=== PATIENT | female | born 1955 | race Caucasian/White ===

== ENCOUNTER 2019-08-09 00:51 | Day surgery (SDC) | payer MEDICARE, SELFPAY ==
[2019-08-08 13:59] VITALS: BMI 29.7
[2019-08-09 08:56] VITALS: BP 130/87; PULSE 89; RESP 16; TEMP 36.6; O2SAT 97
[2019-08-09] MEDS: LACTATED RINGERS 1,000 ML 150 ML IV CONT (09:06)
--- NOTE | 2019-08-09 09:15 | WPDANESEPPF ---
Anes - Initial Pre Proc Eval Procedure: Operation Date: 08/09/19 09:30 Proposed Procedures p Screening Colonoscopy - Marty Morris DO Date/Time: 08/09/19 09:15 Surgeon: Marty Morris DO Pre Op Diagnosis: Neoplasm Screening Patient Data Age: 63 Gender: F Height: 1.63 m Weight: 77.7 kg Last Vital Signs Temp 36.6 C 08/09/19 08:56 Pulse 89 08/09/19 08:56 Resp 16 08/09/19 08:56 BP 130/87 08/09/19 08:56 Pulse Ox 97 08/09/19 08:56 Allergies Allergy/AdvReac Type Severity Reaction Status Date / Time Penicillins Allergy Unknown Other Verified 08/09/19 08:49 Home Medications Medication Instructions Recorded Confirmed Type amlodipine 5 mg PO DAILY 08/08/19 08/09/19 History celecoxib 400 mg PO DAILY 08/08/19 08/09/19 History duloxetine 60 mg PO DAILY 08/08/19 08/09/19 History gabapentin 300 mg PO DAILY 08/08/19 08/09/19 History gabapentin 300 mg PO HS 08/08/19 08/09/19 History levothyroxine 150 mcg PO DAILY 08/08/19 08/09/19 History omeprazole 40 mg PO DAILY 08/08/19 08/09/19 History oxybutynin chloride 5 mg PO DAILY 08/08/19 08/09/19 History oxybutynin chloride 10 mg PO HS 08/08/19 08/09/19 History trazodone 200 mg PO HS 08/08/19 08/09/19 History valsartan-hydrochlorothiazide 1 tablet PO DAILY 08/08/19 08/09/19 History venlafaxine 75 mg PO TID 08/08/19 08/09/19 History vitamin B complex-folic acid [B 1 tablet PO DAILY 08/08/19 08/09/19 History Complex 100] Patient hx anesthesia problems: none Family hx anesthesia problems: none PMFSH Past Medical History Medical History (Updated 08/09/19 @ 09:15 by Matthew Berrios DO) COPD (chronic obstructive pulmonary disease) Fibromyalgia Hypertension DEBBIE (obstructive sleep apnea) Social History Social History Smoking status: Never smoker Alcohol intake: never Anes - Eval Final PreProcedure Day of Procedure 08/09/19 09:15 Patient weight: overweight Heart: regular rate and rhythm Lungs: clear to auscultation and normal air movement Airway: Mallampati scale class II Neurological: alert and oriented Last oral intake: >/= 8 hours ASA classification: III Emergent: no Anesthetic plan: proceed Anesthesia type and monitoring: general GIVS and standard monitoring Informed Consent: The patient's anesthetic plan and its attendant risks and benefits were discussed with the patient/family/POA. Questions were solicited and answers provided to the satisfaction of the patient/family/POA.
--- NOTE | 2019-08-09 09:36 | PM.IMHP ---
H&P: HPI History of Present Illness Chief complaint: Neoplasm Screening Narrative: Reason for visit is colonoscopy. This very pleasant lady seen at the request of her primary physician. The patient was examined. Impression: Screening colonoscopy and family history of colon cancer. Patient has a history adenomatous colon polyps. Hypertension. Hypothyroidism. COPD. Fibromyalgia. Anxiety/depression. GERD. Neuropathy. Recommendation: Colonoscopy. History: This very pleasant lady's here for screening and surveillance colonoscopy. She has history adenomatous colon polyps and a family history colorectal cancer. She also has a history of GERD is well controlled on medication. Her GI review systems is unremarkable. Physical examination: General: very pleasant patient in no acute distress. HEENT: Head was normocephalic sclerae is clear mouth without masses neck was supple. Heart: Rate rhythm regular without S3 or S4. Lungs: CTA. Abdomen: Soft with no guarding or rigidity. Bowel sounds were active. Neurologic: Cranial nerves 2 through 12 intact. No focal defects. No clonus. Musculoskeletal system: Revealed no joint tenderness or swelling no muscle atrophy. Extremities: Reveal no significant edema. Skin: Warm and dry with normal turgor. Mental status: intact. Patient is alert and oriented. I want to thank you for allowing me to participate in care of this most interesting patient. Review of Systems Review of Systems: All systems reviewed & are unremarkable except as noted in HPI and below PMFSH Past Medical History Medical History (Updated 08/09/19 @ 09:15 by Matthew Berrios DO) COPD (chronic obstructive pulmonary disease) Fibromyalgia Hypertension DEBBIE (obstructive sleep apnea) Surgical History Surgical History (Updated 08/09/19 @ 09:39 by Marty Morris DO) H/O section H/O colonoscopy H/O repair of rotator cuff Hx of cholecystectomy Social History Social History Smoking status: Never smoker Alcohol intake: never Meds Home Medications and Allergies Home Medications Medication Instructions Recorded Confirmed Type amlodipine 5 mg PO DAILY 08/08/19 08/09/19 History celecoxib 400 mg PO DAILY 08/08/19 08/09/19 History duloxetine 60 mg PO DAILY 08/08/19 08/09/19 History gabapentin 300 mg PO DAILY 08/08/19 08/09/19 History gabapentin 300 mg PO HS 08/08/19 08/09/19 History levothyroxine 150 mcg PO DAILY 08/08/19 08/09/19 History omeprazole 40 mg PO DAILY 08/08/19 08/09/19 History oxybutynin chloride 5 mg PO DAILY 08/08/19 08/09/19 History oxybutynin chloride 10 mg PO HS 08/08/19 08/09/19 History trazodone 200 mg PO HS 08/08/19 08/09/19 History valsartan-hydrochlorothiazide 1 tablet PO DAILY 08/08/19 08/09/19 History venlafaxine 75 mg PO TID 08/08/19 08/09/19 History vitamin B complex-folic acid [B 1 tablet PO DAILY 08/08/19 08/09/19 History Complex 100] Allergies Allergy/AdvReac Type Severity Reaction Status Date / Time Penicillins Allergy Unknown Other Verified 08/09/19 08:49 Vital Signs Vital Signs - 24 hr 08/09/19 08:56 Temperature 36.6 C Pulse Rate 89 Respiratory Rate 16 Blood Pressure 130/87 Pulse Oximetry 97
--- NOTE | 2019-08-09 09:51 | PM.IMHP ---
H&P: HPI History of Present Illness Chief complaint: Neoplasm Screening Narrative: Reason for visit EGD. This very pleasant lady is seen at the request of the primary physician. The patient examined and chart review. Impression: This very pleasant lady's being evaluated for reflux disease and anemia. She is here for endoscopic evaluation to assess for allowing peptic ulcer disease. Increasing reflux disease with breakthrough symptoms. There may be a component underlying biliary disease with epigastric discomfort. Asthma/ COPD. Fibromyalgia. Hypertension. Obstructive sleep apnea. Chronic idiopathic constipation /opioid induced constipation. Recommendation: EGD. May require colonoscopy. History: This very pleasant lady's being evaluated for increasing reflux disease. She has a premature a daily basis. When reflux real bad she complains of hoarseness. She does complain of some abdominal discomfort. She was told that she had gallstones. She does have chronic constipation and takes Trulance which seems to help her constipation. She denies any hematochezia, melena or acholic stools. She does have a history of dysphagia to solid foods. Fever, chills and weight loss or tonight. The patient is here for EGD. Physical examination: General: very pleasant patient in no acute distress. HEENT: Head was normocephalic sclerae is clear mouth without masses neck was supple. Heart: Rate rhythm regular without S3 or S4. Lungs: CTA. Abdomen: Soft with no guarding or rigidity. Bowel sounds were active. Neurologic: Cranial nerves 2 through 12 intact. No focal defects. No clonus. Musculoskeletal system: Revealed no joint tenderness or swelling no muscle atrophy. Extremities: Reveal no significant edema. Skin: Warm and dry with normal turgor. Mental status: intact. Patient is alert and oriented. Want to thank you for allowing me to participate in the care of this most interesting patient. Review of Systems Review of Systems: All systems reviewed & are unremarkable except as noted in HPI and below PMFSH Past Medical History Medical History (Updated 08/09/19 @ 09:54 by Marty Morris DO) Anxiety and depression Chronic idiopathic constipation COPD (chronic obstructive pulmonary disease) Fibromyalgia GERD (gastroesophageal reflux disease) Hypertension Hypothyroid DEBBIE (obstructive sleep apnea) Therapeutic opioid-induced constipation (OIC) Surgical History Surgical History (Updated 08/09/19 @ 09:39 by Marty Morris DO) H/O section H/O colonoscopy H/O repair of rotator cuff Hx of cholecystectomy Social History Social History Smoking status: Never smoker Alcohol intake: never Meds Home Medications and Allergies Home Medications Medication Instructions Recorded Confirmed Type amlodipine 5 mg PO DAILY 08/08/19 08/09/19 History celecoxib 400 mg PO DAILY 08/08/19 08/09/19 History duloxetine 60 mg PO DAILY 08/08/19 08/09/19 History gabapentin 300 mg PO DAILY 08/08/19 08/09/19 History gabapentin 300 mg PO HS 08/08/19 08/09/19 History levothyroxine 150 mcg PO DAILY 08/08/19 08/09/19 History omeprazole 40 mg PO DAILY 08/08/19 08/09/19 History oxybutynin chloride 5 mg PO DAILY 08/08/19 08/09/19 History oxybutynin chloride 10 mg PO HS 08/08/19 08/09/19 History trazodone 200 mg PO HS 08/08/19 08/09/19 History valsartan-hydrochlorothiazide 1 tablet PO DAILY 08/08/19 08/09/19 History venlafaxine 75 mg PO TID 08/08/19 08/09/19 History vitamin B complex-folic acid [B 1 tablet PO DAILY 08/08/19 08/09/19 History Complex 100] Allergies Allergy/AdvReac Type Severity Reaction Status Date / Time Penicillins Allergy Unknown Other Verified 08/09/19 08:49 Vital Signs Vital Signs - 24 hr 08/09/19 08:56 Temperature 36.6 C Pulse Rate 89 Respiratory Rate 16 Blood Pressure 130/87 Pulse Oximetry 97
[2019-08-09 10:18] VITALS: BP 114/70; PULSE 79; RESP 15; O2SAT 98
[2019-08-09 10:28] VITALS: BP 120/70; PULSE 77; RESP 19; O2SAT 98
[2019-08-09 10:38] VITALS: BP 122/73; PULSE 75; RESP 20; O2SAT 95
== END 2019-08-09 10:50 | disposition home or self-care (01) ==
PROVIDERS: PCP Nurse Practitioner Adult Health; Visit Provider Internal Medicine Gastroenterology
PROC: 0DJD8ZZ Inspection of Lower Intestinal Tract, Via Natural or Artificial Opening Endoscopic (ICD-10-PCS; CPT 45378; principal; 2019-08-09 09:30)
DX: Z12.11 Encounter for screening for malignant neoplasm of colon (principal); K63.5 Polyp of colon; K62.1 Rectal polyp; Z80.0 Family history of malignant neoplasm of digestive organs; I10 Essential (primary) hypertension; J44.9 Chronic obstructive pulmonary disease, unspecified; G47.33 Obstructive sleep apnea (adult) (pediatric); M79.7 Fibromyalgia
CPT/HCPCS: 45380; 88305; J2704; J7120

== ENCOUNTER → 2019-08-16 11:20 | Outpatient (CLI) | payer MEDICARE, SELFPAY ==
--- NOTE | ~2019-08-16 | MM_ITS ---
EXAMINATION: MM screening [facility] BI w will HISTORY: Screening mammogram TECHNIQUE: Craniocaudal and mediolateral oblique 3-D tomosynthesis images were obtained and synthetic 2-D images were generated. CAD analysis was submitted and interpreted. COMPARISON: Comparison to multiple prior studies sequentially, with oldest reviewed study dated 03/31. BREAST PARENCHYMAL COMPOSITION: There are scattered areas of fibroglandular density. FINDINGS: There is no evidence of suspicious mass, calcification, or architectural distortion to sugg est malignancy in either breast. There has been no suspicious interval change. IMPRESSION: 1. No mammographic evidence of malignancy. 2. Recommend routine screening mammography in one year. BI-RADS Category 1: Negative Reviewed, dictated and finalized at location A.
== END ==
PROVIDERS: PCP Nurse Practitioner Adult Health; Visit Provider Nurse Practitioner
DX: Z12.31 Encounter for screening mammogram for malignant neoplasm of breast (principal)
CPT/HCPCS: 77063; 77067

== ENCOUNTER → 2020-10-13 15:49 | Outpatient (CLI) | payer MEDICARE, SELFPAY ==
--- NOTE | ~2020-10-13 | MM_ITS ---
EXAMINATION: MM screening [facility] w will HISTORY: Screening TECHNIQUE: Craniocaudal and mediolateral oblique 3-D tomosynthesis images were obtained and synthetic 2-D images were generated. CAD analysis was submitted and interpreted. COMPARISON: No prior mammogram is available for comparison at this institution. BREAST PARENCHYMAL COMPOSITION: Breast composed of scattered areas of fibroglandular density FINDINGS: There are asymmetries in the upper outer quadrant of the right breast which are stable comp ared with prior studies. There is no evidence of suspicious mass, calcification, or architectural dis tortion to suggest malignancy in either breast. There has been no suspicious interval change. IMPRESSION: 1. No mammographic evidence of malignancy. 2. Recommend routine screening mammography in one year. BI-RADS Category 1: Negative Reviewed, dictated and finalized at location A.
== END ==
PROVIDERS: Visit Provider Obstetrics & Gynecology Gynecology
DX: Z12.31 Encounter for screening mammogram for malignant neoplasm of breast (principal)
CPT/HCPCS: 77063; 77067

== ENCOUNTER 2022-05-26 16:36 | Emergency (ER) | payer MEDICARE, SELFPAY ==
[2022-05-26 16:43] VITALS: BP 144/78; PULSE 84; RESP 18; TEMP 36.4; O2SAT 98
--- NOTE | 2022-05-26 16:55 | ED.FEMALEGU ---
HPI - Female Genitourinary General Chief complaint: Urogenital-Female Stated complaint: uti Time Seen by Provider: 05/26/22 16:55 Source: patient Mode of arrival: ambulatory Limitations: no limitations History of Present Illness HPI Narrative: Ms. Amaya is a 66-year-old female patient presenting to the clinic today with complaints possible urinary tract infection Times 3-4 days. She reports no fever or chills however she has some had some lower abdominal pain. Reports dysuria frequency and urgency. Has taken on an old Keflex prescription and been taking some azo for her symptoms Related Data Home Medications Medication Instructions Recorded Confirmed amlodipine 5 mg tablet 5 mg PO DAILY 08/08/19 05/26/22 celecoxib 200 mg capsule 400 mg PO DAILY 08/08/19 05/26/22 duloxetine 60 mg capsule,delayed 60 mg PO DAILY 08/08/19 05/26/22 release gabapentin 300 mg capsule 300 mg PO DAILY 08/08/19 05/26/22 gabapentin 300 mg capsule 300 mg PO HS 08/08/19 05/26/22 levothyroxine 150 mcg capsule 150 mcg PO DAILY 08/08/19 05/26/22 omeprazole 40 mg capsule,delayed 40 mg PO DAILY 08/08/19 05/26/22 release oxybutynin chloride 5 mg tablet 5 mg PO DAILY 08/08/19 05/26/22 oxybutynin chloride 5 mg tablet 10 mg PO HS 08/08/19 05/26/22 trazodone 100 mg tablet 200 mg PO HS 08/08/19 05/26/22 venlafaxine 75 mg tablet 75 mg PO TID 08/08/19 05/26/22 vitamin B complex-folic acid 0.4 1 tablet PO DAILY 08/08/19 05/26/22 mg tablet (B Complex 100) Allergies Allergy/AdvReac Type Severity Reaction Status Date / Time Penicillins Allergy Unknown Other Verified 08/09/19 08:49 Review of Systems Review of Systems: Pertinent positives per HPI. Patient denies any fever, chills, rash, headache, visual changes, dizziness, cough, runny nose, sore throat, shortness of breath, chest pain, palpitations, nausea, vomiting, diarrhea, constipation. PMFSH Past Medical History Medical History (Updated 05/26/22 @ 17:16 by Manoj Falcon, CLUB ATTENDANT) Anxiety and depression Chronic idiopathic constipation COPD (chronic obstructive pulmonary disease) Fibromyalgia GERD (gastroesophageal reflux disease) Hypertension Hypothyroid DEBBIE (obstructive sleep apnea) Therapeutic opioid-induced constipation (OIC) Surgical History Surgical History (Updated 08/09/19 @ 09:39 by Marty Morris DO) H/O section H/O colonoscopy H/O repair of rotator cuff Hx of cholecystectomy Social History Social History Smoking status: Never smoker Alcohol intake: never Comments At the time of my signature, I reviewed and agree with the nursing past medical, surgical, social, and family history. There is no relevant family history pertinent to the patient complaint. Exam Narrative: General: Well-developed, well nourished, in no apparent distress. Head: Normocephalic, atraumatic. Cardio: Regular rate and rhythm, s1 and s2 normal, no murmur appreciated. Resp: Clear to auscultation bilaterally, no rhonchi, rales, wheezing or rubs. Abdomen: Soft, pliable, bowel sounds present in all quadrants, tender to palpation over the bladder, no organomegly, no CVAT tenderness. Course Course Emergency Course: Portions of this record may have been created with voice recognition software. Level of Care: Express Care Visit Vital Signs Vital signs: Vital Signs Temperature 36.4 C L 05/26/22 16:43 Pulse Rate 84 05/26/22 16:43 Respiratory Rate 18 05/26/22 16:43 Blood Pressure 144/78 H 05/26/22 16:43 Pulse Oximetry 98 05/26/22 16:43 Oxygen Delivery Room Air 05/26/22 16:43 Temperature 36.4 C L 05/26/22 16:43 Pulse Rate 84 05/26/22 16:43 Respiratory Rate 18 05/26/22 16:43 Blood Pressure 144/78 H 05/26/22 16:43 Pulse Oximetry 98 05/26/22 16:43 Oxygen Delivery Room Air 05/26/22 16:43 Vital signs reviewed MDM - Female Genitourinary MDM Narrative Medical decision making narrative: At the time of visit patient is resting comfortabl
== END 2022-05-26 17:22 | disposition home or self-care (01) ==
PROVIDERS: Emergency Provider Nurse Practitioner Family
DX: N39.0 Urinary tract infection, site not specified (principal); K21.9 Gastro-esophageal reflux disease without esophagitis; G47.33 Obstructive sleep apnea (adult) (pediatric); E03.9 Hypothyroidism, unspecified; J44.9 Chronic obstructive pulmonary disease, unspecified; F41.8 Other specified anxiety disorders; I10 Essential (primary) hypertension
CPT/HCPCS: 81003; 87086; 87088; 99213; G0463

== ENCOUNTER 2022-06-08 16:30 | Emergency (ER) | payer MEDICARE, SELFPAY ==
[2022-06-08 16:39] VITALS: BP 138/79; PULSE 75; RESP 20; TEMP 36.6; O2SAT 98
--- NOTE | 2022-06-08 16:45 | ED.FEMALEGU ---
HPI - Female Genitourinary General Chief complaint: Urogenital-Female Stated complaint: uti Time Seen by Provider: 06/08/22 16:49 Source: patient, RN notes reviewed and old records reviewed Mode of arrival: ambulatory Limitations: no limitations History of Present Illness HPI Narrative: 60-year-old female presents to the [facility] with continued urgency, burning, frequency of urine. Was seen on the and prescribed Bactrim, states that she is not any better. Reviewed the microbiology from that day, nothing grew out. Patient also reports that she was seen by her cardiopulmonary technician and eeg tech provider on the and prescribed Macrobid. States prior to that she had taken several left over cephalexin patient denies any rashes. States that she was supposed to be referred to a urologist by her cardiopulmonary technician and eeg tech but has not made the appointment because they are too far out. Related Data Home Medications Medication Instructions Recorded Confirmed amlodipine 5 mg tablet 5 mg PO DAILY 08/08/19 06/08/22 celecoxib 200 mg capsule 400 mg PO DAILY 08/08/19 06/08/22 duloxetine 60 mg capsule,delayed 60 mg PO DAILY 08/08/19 06/08/22 release gabapentin 300 mg capsule 300 mg PO DAILY 08/08/19 06/08/22 gabapentin 300 mg capsule 300 mg PO HS 08/08/19 06/08/22 levothyroxine 150 mcg capsule 150 mcg PO DAILY 08/08/19 06/08/22 omeprazole 40 mg capsule,delayed 40 mg PO DAILY 08/08/19 06/08/22 release oxybutynin chloride 5 mg tablet 5 mg PO DAILY 08/08/19 06/08/22 oxybutynin chloride 5 mg tablet 10 mg PO HS 08/08/19 06/08/22 trazodone 100 mg tablet 200 mg PO HS 08/08/19 06/08/22 venlafaxine 75 mg tablet 75 mg PO TID 08/08/19 06/08/22 vitamin B complex-folic acid 0.4 1 tablet PO DAILY 08/08/19 06/08/22 mg tablet (B Complex 100) Allergies Allergy/AdvReac Type Severity Reaction Status Date / Time Penicillins Allergy Unknown Other Verified 06/08/22 16:46 Review of Systems Review of Systems: All systems reviewed & are unremarkable except as noted in HPI and below Constitutional: Constitutional: Reports no additional constitutional complaints Eyes: Eyes: Reports no additional eye complaints ENT: Reports system reviewed and no additional complaints, except as documented Cardiovascular: Cardiovascular: Reports no additional cardiovascular complaints, Denies chest pain and Denies dyspnea Respiratory: Respiratory: Reports no additional respiratory complaints, Denies chest congestion, Denies cough and Denies dyspnea Gastrointestinal: Gastrointestinal: Reports no additional gastrointestinal complaints, Denies abdominal pain, Denies nausea and Denies vomiting Genitourinary: Genitourinary: Reports as per HPI and Reports dysuria Musculoskeletal: Musculoskeletal: Reports no additional musculoskeletal complaints Integumentary/Breasts: Skin/Breast: Reports system reviewed and no additional complaints, except as docu Neurologic: Reports system reviewed and no additional complaints, except as documented Psychiatric: Psychiatric: Reports no additional psychiatric complaints Allergic/Immunologic: Allergic/Immunologic: Reports no additional allergic/immunologic complaints PMFSH Past Medical History Medical History Anxiety and depression Chronic idiopathic constipation COPD (chronic obstructive pulmonary disease) Fibromyalgia GERD (gastroesophageal reflux disease) Hypertension Hypothyroid DEBBIE (obstructive sleep apnea) Therapeutic opioid-induced constipation (OIC) Surgical History Surgical History H/O section H/O colonoscopy H/O repair of rotator cuff Hx of cholecystectomy Social History Social History Smoking status: Never smoker Alcohol intake: never Comments At the time of my signature, I reviewed and agree with the nursing past medical, surgical, social, and family history. There is n
== END 2022-06-08 17:12 | disposition home or self-care (01) ==
PROVIDERS: Emergency Provider Nurse Practitioner
DX: R30.0 Dysuria (principal); J44.9 Chronic obstructive pulmonary disease, unspecified; M79.7 Fibromyalgia; K21.9 Gastro-esophageal reflux disease without esophagitis; I10 Essential (primary) hypertension; E03.9 Hypothyroidism, unspecified; F41.9 Anxiety disorder, unspecified; F32.A Depression, unspecified
CPT/HCPCS: 81003; 87077; 87086; 87186; 99213; G0463

== ENCOUNTER 2022-07-19 14:49 | Outpatient (CLI) | payer MEDICARE, SELFPAY ==
--- NOTE | ~2022-07-19 | MM_ITS ---
EXAMINATION: MM screening [facility] BI w will HISTORY: Screening mammogram TECHNIQUE: Craniocaudal and mediolateral oblique 3-D tomosynthesis images were obtained and synthetic 2-D images were generated. CAD analysis was submitted and interpreted. COMPARISON: 10/13/2020, 08/16/2019, 10/11/2016 BREAST PARENCHYMAL COMPOSITION: There are scattered areas of fibroglandular density. FINDINGS: There is no evidence of suspicious mass, calcification, or architectural distortion to sugg est malignancy in either breast. There has been no suspicious interval change. IMPRESSION: 1. No mammographic evidence of malignancy. 2. Recommend routine screening mammography in one year. BI-RADS Category 1: Negative Reviewed, dictated and finalized at location A. ING MACHINE TENDER
== END 2022-07-19 14:50 | disposition home or self-care (01) ==
LOC: ANHIMG 14:49
PROVIDERS: PCP Family Medicine; Visit Provider Obstetrics & Gynecology Gynecology
DX: Z12.31 Encounter for screening mammogram for malignant neoplasm of breast (principal)
CPT/HCPCS: 77063; 77067

== ENCOUNTER 2022-08-04 11:38 | Outpatient (CLI) | payer MEDICARE, SELFPAY ==
[2022-08-04 18:09] LABS: Basophils Absolute Auto 0.1 K/mm3 (0.0-0.1); Basophils Percent Auto 1.4 % (0.2-1.2); Eosinophils Absolute Auto 0.2 K/mm3 (0-0.3); Eosinophils Percent Auto 1.7 % (0-4.4); Hematocrit 50.5 % (37.0-47.0); Hemoglobin 16.9 g/dL (12.0-15.0); Immature Granulocyte Absolute 0.02 K/mm3 (0.00-0.031); Immature Granulocyte Percent A 0.2 % (0-0.5); Lymphocytes Absolute Auto 2.42 K/mm3 (0.9-3.2); Lymphocytes Percent Auto 27.7 % (18.3-44.2); Mean Corpuscular HGB Conc 33.5 g/dl (32-36); Mean Corpuscular Hemoglobin 29.2 pg (26-34); Mean Corpuscular Volume 87.2 fl (80-100); Mean Platelet Volume 11.1 fl (7.4-10.4); Monocytes Absolute Auto 0.7 K/mm3 (0.1-0.6); Monocytes Percent Auto 8.2 % (2.6-8.5); Neutrophils Absolute Auto 5.3 K/mm3 (1.3-6.7); Neutrophils Percent Auto 60.8 % (45.5-73.1); Platelet Count Result 269 k/mm3 (150-375); Red Blood Count 5.79 M/mm3 (4.2-5.4); Red Cell Distribution Width 12.6 % (11.5-14.5); White Blood Count 8.8 K/mm3 (4.5-10.0)
[2022-08-04 18:18] LABS: Alanine Aminotransferase 31 U/L (6-35); Albumin Level 4.5 g/dL (3.5-5.1); Alkaline Phosphatase 77 U/L (38-126); Anion Gap 7 mmol/L (8-16); Aspartate Amino Transferase 38 U/L (14-36); Bilirubin,Total 0.9 mg/dL (0.2-1.3); Blood Urea Nitrogen 21 mg/dL (7-17); Calcium 9.4 mg/dL (8.4-10.2); Carbon Dioxide 32 mmol/L (22-30); Chloride 98 mmol/L (98-107); Cholesterol 238 mg/dL (0-200); Estimated Glomerular Filt Rate 45; Glucose 113 mg/dL (65-110); HDL Direct 50 mg/dL; Potassium 4.2 mmol/L (3.4-5.0); Sodium 137 mmol/L (137-145); Triglycerides 141 mg/dL (<150)
[2022-08-04 18:30] LABS: LDL Cholesterol Direct 136 mg/dL
[2022-08-04 18:45] LABS: Thyroid Stimulating Hormone 0.019 uIU/mL (0.465-4.680)
[2022-08-04 18:51] LABS: Free T4 Free Thyroxine 2.01 ng/mL (0.78-2.19); Vitamin D 25 Hydroxy 37.5 ng/mL
[2022-08-05 10:50] LABS: Hemoglobin A1C 5.7 % (<5.7)
== END 2022-08-04 11:39 | disposition home or self-care (01) ==
LOC: ANHGOSHLAB 11:39
PROVIDERS: PCP Internal Medicine; Visit Provider Clinical Nurse Specialist
DX: J44.9 Chronic obstructive pulmonary disease, unspecified (principal); E03.9 Hypothyroidism, unspecified; E55.9 Vitamin D deficiency, unspecified; I10 Essential (primary) hypertension; E53.8 Deficiency of other specified B group vitamins; R73.9 Hyperglycemia, unspecified
CPT/HCPCS: 36415; 80053; 80061; 82306; 82607; 83036; 84439; 84443; 85025

== ENCOUNTER 2022-09-24 11:26 | Outpatient (CLI) | payer MEDICARE, SELFPAY ==
[2022-09-24 18:36] LABS: Appearance Urine Clear (Clear); Bilirubin Urine Negative (Negative); Blood Urine Negative (Negative); Color Urine Yellow (Yellow); Glucose Urine UA Negative (Negative); Ketones Urine Negative (Negative); Leukocyte Esterase Ur Negative LEU/UL (Negative); Nitrate Urine Negative (Negative); Protein Urine Negative (Negative); Specific Grav Ur 1.014 (1.001-1.035); Urobilinogen Urine 0.2 mg/dL (<2.0); pH Urine 5.5 (5.0-9.0)
[2022-09-24 18:39] LABS: Add Urine Microscopic? NO
[2022-09-24 18:46] LABS: Basophils Absolute Auto 0.1 K/mm3 (0.0-0.1); Basophils Percent Auto 1.4 % (0.2-1.2); Eosinophils Absolute Auto 0.2 K/mm3 (0-0.3); Eosinophils Percent Auto 2.3 % (0-4.4); Hematocrit 47.8 % (37.0-47.0); Hemoglobin 15.8 g/dL (12.0-15.0); Immature Granulocyte Absolute 0.02 K/mm3 (0.00-0.031); Immature Granulocyte Percent A 0.3 % (0-0.5); Lymphocytes Absolute Auto 2.15 K/mm3 (0.9-3.2); Lymphocytes Percent Auto 30.3 % (18.3-44.2); Mean Corpuscular HGB Conc 33.1 g/dl (32-36); Mean Corpuscular Hemoglobin 29.5 pg (26-34); Mean Corpuscular Volume 89.3 fl (80-100); Mean Platelet Volume 11.3 fl (7.4-10.4); Monocytes Absolute Auto 0.6 K/mm3 (0.1-0.6); Monocytes Percent Auto 8.5 % (2.6-8.5); Neutrophils Absolute Auto 4.1 K/mm3 (1.3-6.7); Neutrophils Percent Auto 57.2 % (45.5-73.1); Platelet Count Result 264 k/mm3 (150-375); Red Blood Count 5.35 M/mm3 (4.2-5.4); Red Cell Distribution Width 13.2 % (11.5-14.5); White Blood Count 7.1 K/mm3 (4.5-10.0)
[2022-09-24 19:27] LABS: Thyroid Stimulating Hormone 0.114 uIU/mL (0.465-4.680)
[2022-09-24 19:32] LABS: Free T4 Free Thyroxine 1.87 ng/mL (0.78-2.19)
[2022-09-28 09:24] LABS: Erythropoietin (EPO) 9.8 mIU/mL (2.6-18.5)
[2022-09-29 03:50] LABS: Triiodothyronine T3 Free 2.7 pg/mL (2.3-4.2)
[2022-09-30 06:33] LABS: Thyroid Peroxidase Antibodies <1 IU/mL (<9)
== END 2022-09-24 11:27 | disposition home or self-care (01) ==
LOC: ANHGOSHLAB 11:28
PROVIDERS: PCP Internal Medicine; Visit Provider Clinical Nurse Specialist
DX: D58.2 Other hemoglobinopathies (principal); E03.9 Hypothyroidism, unspecified; J44.9 Chronic obstructive pulmonary disease, unspecified
CPT/HCPCS: 36415; 81003; 82668; 84439; 84443; 84481; 85025; 86376

== ENCOUNTER 2023-04-27 11:41 | Outpatient (CLI) | payer MEDICARE, SELFPAY ==
[2023-04-27 14:53] LABS: Free T4 Free Thyroxine 1.44 ng/mL (0.78-2.19)
[2023-04-27 15:05] LABS: Thyroid Stimulating Hormone 0.332 uIU/mL (0.465-4.680)
== END 2023-04-27 11:42 | disposition home or self-care (01) ==
LOC: ANHGOSHLAB 11:42
PROVIDERS: PCP Clinical Nurse Specialist; Visit Provider Clinical Nurse Specialist
DX: E03.9 Hypothyroidism, unspecified (principal)
CPT/HCPCS: 36415; 84439; 84443

== ENCOUNTER 2023-07-29 12:40 | Outpatient (CLI) | payer OTHER, SELFPAY ==
[2023-07-29 18:56] LABS: Basophils Absolute Auto 0.1 K/mm3 (0.0-0.1); Basophils Percent Auto 1.7 % (0.2-1.2); Eosinophils Absolute Auto 0.2 K/mm3 (0-0.3); Eosinophils Percent Auto 3.3 % (0-4.4); Hematocrit 52.3 % (37.0-47.0); Hemoglobin 16.9 g/dL (12.0-15.0); Immature Granulocyte Absolute 0.01 K/mm3 (0.00-0.031); Immature Granulocyte Percent A 0.1 % (0-0.5); Lymphocytes Absolute Auto 2.33 K/mm3 (0.9-3.2); Lymphocytes Percent Auto 33.2 % (18.3-44.2); Mean Corpuscular HGB Conc 32.3 g/dl (32-36); Mean Corpuscular Hemoglobin 29.9 pg (26-34); Mean Corpuscular Volume 92.4 fl (80-100); Mean Platelet Volume 10.8 fl (7.4-10.4); Monocytes Absolute Auto 0.6 K/mm3 (0.1-0.6); Monocytes Percent Auto 8.3 % (2.6-8.5); Neutrophils Absolute Auto 3.8 K/mm3 (1.3-6.7); Neutrophils Percent Auto 53.4 % (45.5-73.1); Platelet Count Result 282 k/mm3 (150-375); Red Blood Count 5.66 M/mm3 (4.2-5.4); Red Cell Distribution Width 13.2 % (11.5-14.5)
[2023-07-29 19:18] LABS: Alanine Aminotransferase 26 U/L (6-35); Albumin Level 4.3 g/dL (3.5-5.1); Alkaline Phosphatase 76 U/L (38-126); Anion Gap 6 mmol/L (8-16); Aspartate Amino Transferase 43 U/L (14-36); Bilirubin,Total 0.7 mg/dL (0.2-1.3); Blood Urea Nitrogen 23 mg/dL (7-17); Carbon Dioxide 32 mmol/L (22-30); Chloride 101 mmol/L (98-107); Cholesterol 242 mg/dL (0-200); Estimated Glomerular Filt Rate 45; Glucose 102 mg/dL (65-110); HDL Direct 54 mg/dL; Potassium 4.6 mmol/L (3.4-5.0); Sodium 139 mmol/L (137-145); Triglycerides 124 mg/dL (<150)
[2023-07-29 19:26] LABS: Free T4 Free Thyroxine 1.36 ng/mL (0.78-2.19); Vitamin D 25 Hydroxy 29.2 ng/mL
[2023-07-29 19:29] LABS: LDL Cholesterol Direct 152 mg/dL
== END 2023-07-29 12:41 | disposition home or self-care (01) ==
LOC: ANHGOSHLAB 12:43
PROVIDERS: PCP Clinical Nurse Specialist; Visit Provider Clinical Nurse Specialist
DX: E03.9 Hypothyroidism, unspecified (principal); E53.8 Deficiency of other specified B group vitamins; I10 Essential (primary) hypertension; E55.9 Vitamin D deficiency, unspecified; J44.9 Chronic obstructive pulmonary disease, unspecified
CPT/HCPCS: 36415; 80053; 80061; 82306; 82607; 84439; 84443; 85025

== ENCOUNTER 2023-08-01 14:12 | Outpatient (CLI) | payer OTHER, SELFPAY ==
--- NOTE | ~2023-08-01 | XR_ITS ---
EXAM: XR shoulder LT min 2V DATE: 08/01/2023 14:25 HISTORY: M25.512 - Pain in left shoulder . COMPARISON: 10/13/2004. FINDINGS: Normal mineralization. No fracture or dislocation. No lytic or blastic lesion. Moderate AC joint and mild glenohumeral joint degenerative change. No erosion or periosteal change. Soft tissues within normal limits. IMPRESSION: No acute osseous finding in the left shoulder. Reviewed, dictated and finalized at location K. ESSING MANAGER
== END 2023-08-01 14:13 ==
PROVIDERS: PCP Internal Medicine; Visit Provider Clinical Nurse Specialist
DX: M25.512 Pain in left shoulder (principal)
CPT/HCPCS: 73030

== ENCOUNTER 2023-10-17 14:10 | Outpatient (CLI) | payer OTHER, SELFPAY ==
--- NOTE | ~2023-10-17 | XR_ITS ---
XR knee LT min 4V DATE: 10/17/2023 14:25 INDICATION: Left knee pain TECHNIQUE: [place] and standing AP, PA and lateral views COMPARISON: None FINDINGS: No fracture or dislocation or joint effusion. There is moderately prominent loss of medial compartment joint space height. There is minimal periart icular spurring of the lateral tibial plateau. No radiopaque intra-articular loose body or chondrocalcinosis. No periosteal reaction or bone destruction. IMPRESSION: Moderately prominent loss of medial compartment joint space Mild particular spurring at the lateral compartment Reviewed, dictated and finalized at location B.
== END 2023-10-17 14:11 ==
PROVIDERS: PCP Internal Medicine; Visit Provider Clinical Nurse Specialist
DX: M25.762 Osteophyte, left knee (principal); M25.862 Other specified joint disorders, left knee
CPT/HCPCS: 73564

== ENCOUNTER 2024-07-04 14:43 | Outpatient (CLI) | payer OTHER, SELFPAY ==
--- NOTE | ~2024-07-04 | XR_ITS ---
EXAMINATION: XR chest 2V 07/04/2024 15:10 INDICATION: Toxic effect of smoking. PROCEDURE: 2 view chest COMPARISON: Comparison to multiple prior studies sequentially, with oldest reviewed study dated 06/21. FINDINGS: The lungs are clear. The cardiomediastinal silhouette is within normal limits. There are no pleural effusions. There is no pneumothorax suspected. IMPRESSION: 1: NO ACUTE CARDIOPULMONARY DISEASE. Reviewed, dictated and finalized at location B. ON FURNACE OPERATOR
== END 2024-07-04 14:44 | disposition home or self-care (01) ==
LOC: GOSHIMG 14:44
PROVIDERS: PCP Clinical Nurse Specialist; Visit Provider Clinical Nurse Specialist
DX: J44.9 Chronic obstructive pulmonary disease, unspecified (principal); T59.811A Toxic effect of smoke, accidental (unintentional), initial encounter
CPT/HCPCS: 71046

== ENCOUNTER 2024-07-20 11:43 | Outpatient (CLI) | payer OTHER, SELFPAY ==
--- NOTE | ~2024-07-20 | XR_ITS ---
EXAMINATION: XR chest 2V 07/20/2024 12:13 INDICATION: Shortness of breath PROCEDURE: 2 view chest COMPARISON: 07/04/2024 FINDINGS: The lungs are clear. The cardiomediastinal silhouette is within normal limits. There are no pleural effusions. There is no pneumothorax suspected. IMPRESSION: 1: NO ACUTE CARDIOPULMONARY DISEASE. Reviewed, dictated and finalized at location L. OR FINANCIAL CONSULTANT
--- OUTSIDE RECORDS SUMMARY | 2024-07-20 12:00 | XMS_ITS | Clinical Summary ---
Author Organization [address] Address [address] [place] [phone] Care Team Providers Care Nursing Home Admissions Director Name Role Phone Jevon Oconnor DO Primary Care Provider [phone]- [phone] Allergies Active Allergy Reactions Criticality Noted Date Comments Penicillins Other (See comments),Rash Medium 0 Yeast infection Sulfa Rash Medium 12/05/2017 Medications ergocalciferol (DRISDOL) 8,000 unit/mL drops Take by mouth Active valsartan-hydr oCHLOROthiazid e (DIOVAN-HCT) 160-12.5 mg per tablet Take 1 tablet by mouth daily Active valsartan (DIOVAN) 320 mg tablet Take 0.5 tablets (160 mg total) by mouth 2 (two) times a day Active triamcinolone (KENALOG) 0.1 % cream APPLY CREAM EXTERNALLY THREE TIMES DAILY NEEDED FOR RASH 4 Active spironolactone (ALDACTONE) 25 mg tablet Take 2 tablets (50 mg total) by mouth daily Active omeprazole (PriLOSEC) 40 mg capsule Take 1 capsule (40 mg total) by mouth daily Active HYDROcodone-ac etaminophen (NORCO) 5-325 mg per tablet Take by mouth every 8 (eight) hours as needed 4 Active gabapentin (NEURONTIN) 300 mg capsule Take 1 capsule (300 mg total) by mouth 4 (four) times a day Active estradioL (ESTRACE) 0.01 % (0.1 mg/gram) vaginal cream INSERT 1/4 (ONE-FOURTH) APPLICATORFUL VAGINALLY TWICE A WEEK [address] (CYMBALTA) 60 mg capsule Take 1 capsule (60 mg total) by mouth 2 (two) times a day Active chlorthalidone (HYGROTON) 25 mg tablet Take 1 tablet (25 mg total) by mouth daily Active celecoxib (CeleBREX) 200 mg capsule Take 2 capsules (400 mg total) by mouth Active amLODIPine (NORVASC) 5 mg tablet Take 1 tablet (5 mg total) by mouth daily Active ALPRAZolam (XANAX) 0.25 mg tablet Take 1 tablet (0.25 mg total) by mouth 3 (three) times a day as needed Active cholecalcifero l, vitamin D3, (cholecalcifer ol, vit D3,,bulk,) 100,000 unit/gram powder Take by mouth once a week Active levothyroxine (SYNTHROID) 75 mcg tablet Take 1 tablet (75 mcg total) by mouth every other day Dx E03.9 60 tablet 3 4 Active Active Problems Problem Noted Date Diagnosed Date Goiter 10/13/2013 Overview (09/01/2016): GOITER NOS Hypothyroidism 10/13/2013 Overview (09/01/2016): HYPOTHYROIDISM NOS Assessment & Plan (06/14/2024 4:35 PM JIG BUILDER): Chronic, stable. Update TFTs Continue levothyroxine, with adjustments if indicated Send prescription Assessment & Plan (12/07/2023 3:01 PM CDT): Goal of the treatment is keep TSH and free T4 with a normal range Brand name levothyroxine is recommended to prevent this fluctuation then thyroid levels. Also the importance of taking the medication on an empty stomach 1 hour apart from food was explained to the patient Will update TFTs and will advise on changes in the dose of the levothyroxine, as indicated. 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 12/07/2023 Overview (09/01/2016): TOX MULTNOD GOIT NO MAURILIO Encounters Date Type Department Care Team Description 06/14/2024 3:15 PM JIG BUILDER Office Visit [facility] [address] [address] Shiloh Valdez MD Acquired hypothyroidism (Primary Dx) from Last 3 Months Surgical History Surgery Date Site/Laterality Comments SECTION section CHOLECYSTECTOMY Cholecystectomy Medical History Medical History Date Comments Disorder of thyroid Thyroid dise ase 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 Never 06/14/2024 Q2: How many drinks containi ng alcohol do you have on a typical day when you are drinking? Patient does not drink Q3: How often do you have si x or more drinks on one occasion? Never 06/14/2024 PHQ-2 Answer Date Recorded PHQ-2 Total Score (If total score is 3 or more points, staff should administer the PHQ-9) 0 06/14/2024 Comments Unknown Sex and Gender Information Value Date Recorded Sex Assigned at Not on file Legal Sex Female 12:59 AM JIG BUILDER Gender Identity Not on file Sexual Orientation Straight 12/07/2023 1: 09 PM CDT Obstetrics History Last Filed Vital Signs Vital Sign Reading Time Taken Comments Blood Pressure 124/70 06/14/2024 3:13 PM JIG BUILDER Pulse 68 06/14/2024 3:13 PM JIG BUILDER Temperature - - Respiratory Rate 16 06/14/2024 3:13 PM JIG BUILDER Oxygen Saturation - - Inhaled Oxygen Concentration - - Weight 72.1 kg (159 lb) 06/14/2024 3:13 PM JIG BUILDER Height 160 cm (5' 3 ) 06/14/2024 3:13 PM JIG BUILDER Body Mass Index 28.17 06/14/2024 3:13 PM JIG BUILDER Plan of Treatment Health Maintenance Due Date Last Done Comments Breast Cancer Screening-Mammogram 1955 Colon Cancer Screening-Colonoscopy 1955 Hepatitis C Screening 1955 Osteoporosis Screening-Bone Density Scan 1955 Hepatitis B Screening 10/08/1971 Zoster Vaccine (1 of 2) 10/08/2003 Well Visit 65+ 2018 DTaP/Tdap/Td Vaccine (2 - Td or Tdap) 03/26/2021 Covid-19 Vaccine (4 - season) 2024 06/04/2021, 07/27/2020, 07/05/2020 Influenza Vaccine (#1) 2024 Pneumococcal vaccine 65+ (3 of 3 - PCV20 or PCV21) 04/02/2024 04/02/2019, 06/21/2016 Depression Screening 06/14/2025 06/14/2024, 12/07/19 Fall Risk Assessment 06/14/2025 06/14/2024, 12/07/19 Insurance [employer] PPO Care Teams Nursing Home Admissions Director Relationship Specialty Start Date End Date Jevon Oconnor DO PCP - General Internal Medicine 08/22/23
--- OUTSIDE RECORDS SUMMARY | 2024-07-20 12:00 | XMS_ITS | Patient Health Summary ---
Author Organization [facility] Address [address] [place] [address] Care Team Providers Care Professor Of Literacy Name Role Phone Martine Rowe MD Primary Care Provider Note from [facility],non-owned Affiliates and Associated Physician Practices is amultiple site organization consisting of ambulatory clinics and hospital sitesin [place], [place], [place] and [place]. This disclosure is being madepursuant to the Care Everywhere program and may not contain all information available regarding this patient. Last updated 18.[facility] Allergies * Penicillins(Yeast infection) Medications * Be aware that medications may not be up to date on this document. Alwaysverify current medications with the patient. * levalbuterol (XOPENEX) 45 MCG/ACT inhaler Inhale 2 Puffs by mouth every 6 hours as needed * progesterone micronzide (PROMETRIUM) 200 MG capsule Take 200 mg by mouth at bedtime. * VITAMIN D PO Take by mouth every 7 days. 61683 units * escitalopram (LEXAPRO) 20 MG tablet Take 20 mg by mouth daily. 2 tabs * celecoxib (CELEBREX) 100 MG capsule Take 100 mg by mouth daily. * gabapentin (NEURONTIN) 300 MG capsule Take 300 mg by mouth 2 times daily. 1 tab in AM 2 tabs in PM * progesterone micronized (PROMETRIUM) 100 MG capsule Take 100 mg by mouth at bedtime. 2 tabs * valsartan-hydrochlorothiazide (DIOVAN HCT) 160-12.5 MG tablet Take 1 Tab by mouth daily. * alprazolam (XANAX) 0.25 MG tablet Take 0.25 mg by mouth 3 times daily as needed for Anxiety. * docusate sodium (COLACE) 100 MG capsule(Started 12/23/2009) Take 1 Cap by mouth 2 times daily. 2 refills left * oxycodone-acetaminophen (PERCOCET) 5-325 MG tablet(Started 12/23/2009) Take 1 Tab by mouth every 4 hours as needed for Pain. * estrogens (conjugated) (PREMARIN) 0.625 MG tablet(Started 12/23/2009) Take 1 Tab by mouth daily. Until seen in the office by Dr Peterson. Social History Tobacco Use Types Packs/Day Years Used Date Smoking Tobacco: Never Alcohol Use Standard Drinks/Week Comments No 0 (1 standard drink = 0.6 oz pur e alcohol) Sex and Gender Information Value Date Recorded Sex Assigned at Not on file Gender Identity Not on file Sexual Orientation Not on file Last Filed Vital Signs Vital Sign Reading Time Taken Comments Blood Pressure 129/70 12/23/2009 7:31 AM CDT Pulse 69 12/23/2009 7:31 AM CDT Temperature 36.9 C (98.5 F) 12/23/2009 7:31 AM CDT Respiratory Rate 22 12/23/2009 7:31 AM CDT Oxygen Saturation 92% 12/23/2009 7:31 AM CDT Inhaled Oxygen Concentration - - Weight 83 kg (183 lb) 12/09/2009 7:15 PM CDT Height 162.6 cm (5' 4 ) 12/09/2009 7:15 PM CDT Body Mass Index 31.41 12/09/2009 7:15 PM CDT Procedures * CBC W/O DIFFERENTIAL(Performed 12/17/2009) Performed for Preop Examination * BASIC METABOLIC PANEL (CALCIUM TOTAL)(Performed 12/17/2009) Performed for Preop Examination * LAB HISTORICAL RESULTS-ONBASE(Performed 10/28/2009) * LAB HISTORICAL RESULTS-ONBASE(Performed 06/03/2009) Results * CBC W/O DIFFERENTIAL (12/17/2009 1:45 PM CDT) [facility] WBC 6.8 4.0 - 10.0 K/CUMM [facility] RBC 4.91 3.80 - 5.80 M/CUMM [facility] Hemoglobin 14.6 12.0 - 16.0 gm/dl [facility] Hematocrit 42.8 37.0 - 47.0 % [facility] MCV 87.2 80.0 - 100.0 fl [facility] MCH 29.7 26.0 - 34.0 pg [facility] MCHC 34.1 31.0 - 37.0 gm/dl [facility] RDW 12.9 11.5 - 14.5 % [facility] Platelet Count 195 150 - 400 K/CUMM [facility] BLOOD SPECIMEN / Unknown 12/17/2009 1:45 PM CDT 12/17/2009 2:11 PM CDT Luisana Peterson MD LAB - HEMATOLOGY ORD ZACHARY Performing Organization Address [facility] Co de Phone Number [facility] [address] [place] [phone] * (ABNORMAL) BASIC METABOLIC PANEL (CALCIUM TOTAL) (12/17/2009 1:45 PM CDT) Sodium 141 137 - 145 mmol/L [facility] Potassium 4.3 3.6 - 5.0 mmol/L [facility] Chloride 102 98 - 107 mmol/L [facility] BUN 13 7 - 17 mg/dl [facility] Creatinine 0.80 0.52 - 1.04 mg/dl [facility] Glucose 91 65 - 105 mg/dl [facility] CO2 31(H) 22 - 30 mmol/L [facility] Calcium 8.9 8.4 - 10.2 mg/dl [facility] eGFR by MDRD 74 >60 mL/min/1.7 3m2 [facility] Comment eGFR [facility] Comment: The eGFR does not apply to patients who are younger than 18 or older than 70. BLOOD SPECIMEN / Unknown 12/17/2009 1:45 PM CDT 12/17/2009 2:10 PM CDT Luisana Peterson MD LAB - CHEMISTRY ORDKateryna CLEMONS Performing Organization Address [facility] Co de Phone Number [facility] [address] [place] [phone] * LAB HISTORICAL RESULTS-ONBASE (10/28/2009) Only the most recent of2 resultswithin the time period is included. 10/28/2009 Fa Delmy Peterson MD LAB - CHEMISTRY [facility] Care Teams Professor Of Literacy Relationship Specialty Start Date End Date Martine Rowe MD [address] [place] [phone] PCP - General 12/17/09
--- OUTSIDE RECORDS SUMMARY | 2024-07-20 12:00 | XMS_ITS | Clinical Summary ---
Author Organization [facility] Address [facility] [place] [address] Care Team Providers Care Florist Supplies Salesperson Name Role Phone Unavailable Primary Care Provider Unavailabl e Social History Tobacco Use Types Packs/Day Years Used Date Smoking Tobacco: Never Assessed Comments Unknown Sex and Gender Information Value Date Recorded Sex Assigned at Not on file Legal Sex Female 4:50 PM CDT Gender Identity Not on file Sexual Orientation Not on file Plan of Treatment Health Maintenance Due Date Last Done Comments Colorectal Cancer Screening Colonoscopy (10 Years) 1953 Hepatitis C 10/08/1971 DTaP, Tdap and Td Vaccines ( 1 - Tdap) 1972 Mammogram Screening 1993 Zoster Vaccines (1 of 2) 10/08/2003 Dexa Scan (General) 2018 Pneumococcal Vaccine: 65+ Ye ars (1 of 1 - PCV) 2018 COVID-19 Vaccine (2023-2 5 season) 2024 Influenza Adult (#1) 2024 RSV Immunization or 60+ Years (1 - 1-dose 75+ series) 2028 Meningococcal B Vaccine Aged Out No l onger eligible based on patient's age to complete this topic Meningococcal Vaccine Aged Out No kiara kenzie eligible based on patient's age to complete this topic RSV Immunizations Under 20 Months Aged Out No longer eligible based on patient's age to complete this topic
--- OUTSIDE RECORDS SUMMARY | 2024-07-20 12:00 | XMS_ITS | Referral Summary ---
Author Organization [facility] Address [address] [place] [address] Care Team Providers Care Processor Helper Name Role Phone Martine Rowe MD Primary Care Provider Source Comments [facility],non-owned Affiliates and Associated Physician Practices is amultiple site organization consisting of ambulatory clinics and hospital sitesin [place], [place], [place] and [place]. This disclosure is being madepursuant to the Care Everywhere program and may not contain all information available regarding this patient. Last updated 18.[facility] Allergies Active Allergy Reactions Criticality Noted Date Comments Penicillins 12/09/2009 Yeast infection Medications * Be aware that medications may not be up to date on this document. Alwaysverify current medications with the patient. Medication Sig Dispensed Refills Start Date End Date Status levalbuterol (XOPENEX) 45 MCG/ACT inhaler Inhale 2 Puffs by mouth every 6 hours as needed Active progesterone micronzide (PROMETRIUM) 200 MG capsule Take 200 mg by mouth at bedtime. Active VITAMIN D PO Take by mouth every 7 days. 54491 units Active escitalopram (LEXAPRO) 20 MG tablet Take 20 mg by mouth daily. 2 tabs Active celecoxib (CELEBREX) 100 MG capsule Take 100 mg by mouth daily. Active gabapentin (NEURONTIN) 300 MG capsule Take 300 mg by mouth 2 times daily. 1 tab in AM 2 tabs in PM Active progesterone micronized (PROMETRIUM) 100 MG capsule Take 100 mg by mouth at bedtime. 2 tabs Active valsartan-hydrochlorot hiazide (DIOVAN HCT) 160-12.5 MG tablet Take 1 Tab by mouth daily. Active alprazolam (XANAX) 0.25 MG tablet Take 0.25 mg by mouth 3 times daily as needed for Anxiety. Active docusate sodium (COLACE) 100 MG capsule Take 1 Cap by mouth 2 times daily. 60 2 12/23/2009 Active oxycodone-acetaminophe n (PERCOCET) 5-325 MG tablet Take 1 Tab by mouth every 4 hours as needed for Pain. 10 0 12/23/2009 Active estrogens (conjugated) (PREMARIN) 0.625 MG tablet Take 1 Tab by mouth daily. Until seen in the office by Dr Peterson. 0 0 12/23/2009 Active Social History Tobacco Use Types Packs/Day Years [...] Mass Index 31.41 12/09/2009 7:15 PM CDT Plan of Treatment Not on file Advance Directives * Full Code (Latest Code Status on File) Date Activated Date Inactivated Comments 12/22/2009 9:56 AM 12/23/2009 10:48 PM Care Teams Processor Helper Relationship Specialty Start Date End Date Martine Rowe MD [address] [place] [phone] PCP - General 12/17/09
--- OUTSIDE RECORDS SUMMARY | 2024-07-20 12:00 | XMS_ITS | Patient Health Record ---
Author Organization [facility] Address [address] [facility] [address] [place], [place] [address] Care Team Providers Care Mate Chief Name Role Phone [email or web address] Courtney Unavailable [phone] YONATHAN NICK, ROMINA Unavailable Unavailable REASON FOR REFERRAL No Information PLAN OF TREATMENT No Information Insurance Providers Payer Name Payer Address Payer Phone Subscriber Number Group Number Insured Name Patient Relationship to Insured Coverage Start Date Coverage End Date BLUE ACCESS CHOICE [address] [place] [address] [id number] Yaakov Amaya Spouse - patient is the spouse of the insured 8 MEDICARE ASSIGNMENT [address] [place] [address] [phone] [id number] Yaakov Amaya Spouse - patient is the spouse of the insured 1
--- OUTSIDE RECORDS SUMMARY | 2024-07-20 12:00 | XMS_ITS | Clinical Summary ---
Author Organization [facility] [id number] [facility] Address [address] [place] [address] Care Team Providers Care Loan Associate Name Role Phone Unavailable Primary Care Provider Unavailabl e Allergies Active Allergy Reactions Criticality Noted Date Comments Penicillins Rash Low 03/03/2021 Medications DULoxetine (CYMBALTA) 60 mg Capsule, Delayed Release(E.C.) Take 60 mg by mouth 2 times daily. Active valsartan (DIOVAN) 320 mg tablet Take 160 mg by mouth 2 times daily. Active celecoxib (CeleBREX) 200 mg capsule Take 400 mg by mouth. Active FLUoxetine (PROzac) 20 mg capsule Take 20 mg by mouth 2 times daily. Active amLODIPine (NORVASC) 5 mg tablet Take 5 mg by mouth daily. Active gabapentin (NEURONTIN) 300 mg capsule Take 300 mg by mouth 4 times daily. Active omeprazole (PriLOSEC) 40 mg Capsule, Delayed Release(E.C.) Take 40 mg by mouth daily. Active oxybutynin chloride (DITROPAN) 5 mg tablet Take 5 mg by mouth 2 times daily. Active zolpidem (AMBIEN) 10 mg tablet Take 10 mg by mouth nightly as needed for Insomnia. Active levothyroxine (EUTHYROX) 75 mcg tablet Take 75 mcg by mouth daily in the morning. Active ergocalciferol, vitamin D2, (VITAMIN D2 ORAL) Take by mouth. Active chlorthalidone (HYGROTON) 25 mg tablet TAKE 1 TABLET BY MOUTH EVERY DAY 30 Tablet 6 12/07/2021 Active spironolactone (ALDACTONE) 25 mg tablet Take 2 Tablets (50 mg) by mouth daily. 180 Tablet 2 12/21/2021 Active Active Problems No known active problems Family History Medical History Relation Name Comments Heart Disease Father Heart Disease Mother Stroke Sister Relation Name Status Comments Father Mother Sister Social History Tobacco Use Types Packs/Day Years Used Date Smoking Tobacco: Never Alcohol Use Standard Drinks/Week Comments Not Currently 0 (1 standard drink = 0.6 oz pur e alcohol) Comments Unknown Sex and Gender Information Value Date Recorded Sex Assigned at Not on file Legal Sex Female 9:38 PM CDT Gender Identity Not on file Sexual Orientation Not on file Last Filed Vital Signs Vital Sign Reading Time Taken Comments Blood Pressure 138/82 03/03/2021 10:02 AM CDT Pulse 83 03/03/2021 10:02 AM CDT Temperature - - Respiratory Rate - - Oxygen Saturation - - Inhaled Oxygen Concentration - - Weight 81.6 kg (180 lb) 03/03/2021 10:02 AM CDT Height 162.6 cm (5' 4 ) 03/03/2021 10:02 AM CDT Body Mass Index 30.9 03/03/2021 10:02 AM CDT Plan of Treatment Health Maintenance Due Date Last Done Comments DIABETES ANNUAL FOOT EXAM 10/08/1971 DIABETES ANNUAL RETINAL EXAM 10/08/1971 DIABETES HBA1C Q 6 MONTHS 10/08/1971 DIABETES MICROALBUMIN ANNUAL SCREEN 10/08/1971 LDL CHOLESTEROL ANNUAL 10/08/1971 BREAST CANCER SCREENING 1993 COLORECTAL SCREENING 1998 Colorectal Cancer Screening 1998 FIT-DNA Q 3 years 1998 FIT/FOBT Q 1 year 1998 Flex Sig/CT Colonography Q 5 years 1998 ZOSTER VACCINE (1 of 2) 10/08/2003 RSV VACCINE (60+ or ) (1 - Risk 60-74 years 1-dose series) 2013 OSTEOPOROSIS SCREENING 2018 DTAP/TDAP/TD VACCINES (2 - Td or Tdap) 03/26/2021 INFLUENZA VACCINE (#1) 2023 PNEUMOCOCCAL VACCINE 65+ YEA RS (3 of 3 - PCV20 or PCV21) 04/02/2024 04/02/2019, 06/21/2016 [facility] [id number]
--- OUTSIDE RECORDS SUMMARY | 2024-07-20 12:00 | XMS_ITS | Referral Summary ---
Author Organization [address] Address [address] [place] [phone] Care Team Providers Care Plate Developer Name Role Phone Jevon Oconnor DO Primary Care Provider [phone]- [phone] Encounters Date Type Department Care Team Description 06/14/2024 3:15 PM ORACLE BRM DEVELOPER Office Visit [address] [phone] Shiloh Valdez MD Acquired hypothyroidism (Primary Dx) from Last 3 Months Allergies Active Allergy Reactions Criticality Noted Date [...] 0.01 % (0.1 mg/gram) vaginal cream INSERT / (ONE-FOURTH) APPLICATORFUL VAGINALLY TWICE A WEEK 4 [...] NOS Assessment & Plan (06/14/2024 4:35 PM ORACLE BRM DEVELOPER): Chronic, stable. Update TFTs Continue levothyroxine, with [...] Overview (09/01/2016): TOX MULTNOD GOIT NO MAURILIO Social History Tobacco Use Types Packs/Day Years [...] on file Legal Sex Female 12:59 AM ORACLE BRM DEVELOPER Gender Identity Not on file Sexual Orientation Straight 12/07/2023 1: 09 PM CDT Last Filed Vital Signs Vital Sign Reading Time Taken Comments Blood Pressure 124/70 06/14/2024 3:13 PM ORACLE BRM DEVELOPER Pulse 68 06/14/2024 3:13 PM ORACLE BRM DEVELOPER Temperature - - Respiratory Rate 16 06/14/2024 3:13 PM ORACLE BRM DEVELOPER Oxygen Saturation - - Inhaled Oxygen Concentration - - Weight 72.1 kg (159 lb) 06/14/2024 3:13 PM ORACLE BRM DEVELOPER Height 160 cm (5' 3 ) 06/14/2024 3:13 PM ORACLE BRM DEVELOPER Body Mass Index 28.17 06/14/2024 3:13 PM ORACLE BRM DEVELOPER Plan of Treatment Not on file Insurance [employer] P[employer] Care Teams Plate Developer Relationship Specialty Start Date End Date Jevon Oconnor DO PCP - General Internal Medicine 08/22/23
--- OUTSIDE RECORDS SUMMARY | 2024-07-20 12:00 | XMS_ITS | Clinical Summary ---
Author Organization [facility] Address [address] [address] Phone Care Team Providers Care Line Out Worker Name Role Phone Carmella Singh JUNIOR Primary Care Provider +1- [phone] Allergies Active Allergy Reactions Criticality Noted Date Comments Penicillins Other (see Comments) 12/05/2017 Yeast infection Sulfa Antibiotics Unknown 12/05/2017 Medications polyethylene glycol (MIRALAX) Powder Please use entire 255 gram for colonoscopy prep as directed by office. 1 Bottle 8 Active Family History Medical History Relation Name Comments Cancer Father colon, breast Hypertension Mother Relation Name Status Comments Father Mother Alive Social History Tobacco Use Types Packs/Day Years Used Date Smoking Tobacco: Never Smokeless Tobacco: Never Alcohol Use Standard Drinks/Week Comments No 0 (1 standard drink = 0.6 oz pur e alcohol) Comments Unknown Sex and Gender Information Value Date Recorded Sex Assigned at Not on file Legal Sex Female 7:50 PM CDT Gender Identity Not on file Sexual Orientation Not on file Last Filed Vital Signs Vital Sign Reading Time Taken Comments Blood Pressure - - Pulse - - Temperature - - Respiratory Rate - - Oxygen Saturation - - Inhaled Oxygen Concentration - - Weight 83.9 kg (185 lb) 12/05/2017 11:00 AM CDT Height 162.6 cm (5' 4 ) 12/05/2017 11:00 AM CDT Body Mass Index 31.76 12/05/2017 11:00 AM CDT Plan of Treatment Health Maintenance Due Date Last Done Comments DEXA Bone Density 1955 Hepatitis C Virus (HCV) Screening 1955 TdaP Immunization 1955 Cologuard 10/08/2003 Immunochemical Fecal Occult Blood 10/08/2003 Mammogram 10/08/2003 Pneumococcal Immunization (5 0+ years) (1 of 1 - PCV) 10/08/2003 Zoster Immunization (1 of 2) 10/08/2003 Influenza Immunization (#1) 2024 SARS-COV-2 Immunization (1 - season) 2024 Colonoscopy 08/08/2024 08/09/2019, 07/22/2011 Colorectal Cancer Screening 08/08/2024 Respiratory Syncytial Virus (RSV) Immunization (Adult) (1 - 1-dose 75+ series) 2028 08/09/2019, 07/22/2011 Hepatitis B Immunization Aged Out No longer eligible based on patient's age to complete this topic Meningococcal Immunization (ACWY) Aged Out No longer eligible b ased on patient's age to complete this topic Rotavirus Immunization Aged Out No lo nger eligible based on patient's age to complete this topic Procedures Procedure Name Priority Date/Time Associated Diagnosis Comments COLONOSCOPY Routine 08/09/2019 from Last 3 Months or Most Recently Relevant to Health Maintenance Results * COLONOSCOPY (08/09/2019) Marty Morris DO PROCEDURE/MINOR SURGICAL ORDERA BLES Final Result from Last 3 Months or Most Recently Relevant to Health Maintenance Insurance MEDICARE C [facility] on file Care Teams Line Out Worker Relationship Specialty Start Date End Date Carmella Singh APRN PCP - General Advanced Practice Nurse 10/11/17
--- OUTSIDE RECORDS SUMMARY | 2024-07-20 12:00 | XMS_ITS | Clinical Summary ---
Author Organization [facility] Address [address] [place] [address] Care Team Providers Care Hide Stretcher Hand Name Role Phone Martine Rowe MD Primary Care Provider Source Comments [facility],non-owned Affiliates and Associated Physician Practices is amultiple site organization consisting of ambulatory clinics and hospital sitesin [place], [place], [place] and [place]. This disclosure is being madepursuant to the Care Everywhere program and may not contain all information available regarding this patient. Last updated 18.[facility] People Pattern Allergies Active Allergy Reactions Criticality Noted Date [...] PO Take by mouth every 7 days. 91098 units Active escitalopram (LEXAPRO) 20 MG tablet [...] 12/09/2009 7:15 PM CDT Plan of Treatment Health Maintenance Due Date Last Done Comments BONE DENSITY TESTING 1955 COLOGUARD (AGES 45-75) - COL ON CA SCREENING 1955 COLON MONITORING 1955 COLONOSCOPY - COLON CA SCREENING 1953 CT COLONOGRAPHY - COLON CA SCREENING 1955 Colorectal Cancer Screening 1955 FIT - COLON CA SCREENING 1953 FLEX SIG - COLON CA SCREENING 1953 LIPID TESTING 1955 MAMMOGRAM 1953 HEPATITIS C SCREENING 10/03/1971 DTAP/TDAP/TD VACCINES (1 - Tdap) 1972 PNEUMOCOCCAL VACCINE 50+ (1 of 1 - PCV) 10/08/2003 ZOSTER VACCINE (1 of 2) 10/08/2003 COVID-19 VACCINE (1 - 2023-2 5 season) 2024 INFLUENZA VACCINE (#1) 2024 DEPRESSION SCREENING 05/30/2024 MEDICARE AWV CALENDAR YEAR 2024 Respiratory Syncytial Virus (RSV) Vaccine Pt: or over 60 yrs (1 - 1-dose 75+ series) 2028 HEPATITIS B VACCINE Aged Out No longe r eligible based on patient's age to complete this topic HIB VACCINE Aged Out No longer eligi ble based on patient's age to complete this topic HPV VACCINE Aged Out No longer eligi ble based on patient's age to complete this topic MENINGOCOCCAL (Group B) VACCINE Aged Out No longer eligible based on patient's age to complete this topic MENINGOCOCCAL VACCINE Aged Out No kiara kenzie eligible based on patient's age to complete this topic Advance Directives * Full Code (Latest Code Status on File) Date Activated Date Inactivated Comments 12/22/2009 9:56 AM 12/23/2009 10:48 PM Care Teams Hide Stretcher Hand Relationship Specialty Start Date End Date Martine Rowe MD [address] [place] [address] [address] [place] [address] PCP - General 12/17/09
== END 2024-07-20 11:44 | disposition home or self-care (01) ==
PROVIDERS: PCP Clinical Nurse Specialist; Visit Provider Clinical Nurse Specialist
DX: R06.02 Shortness of breath (principal)
CPT/HCPCS: 71046

== ENCOUNTER 2024-07-26 11:27 | Outpatient (CLI) | payer OTHER, SELFPAY ==
[2024-07-26 11:44] LABS: Estimated Glomerular Filt Rate 37
== END 2024-07-26 11:28 | disposition home or self-care (01) ==
PROVIDERS: PCP Internal Medicine; Visit Provider Clinical Nurse Specialist
DX: J44.9 Chronic obstructive pulmonary disease, unspecified (principal)
CPT/HCPCS: 71260; Q9967

== ENCOUNTER 2024-07-27 14:50 | Outpatient (CLI) | payer OTHER, SELFPAY ==
--- NOTE | 2024-07-30 11:10 | WPDPFTINT ---
PFT Procedure Performed PFT Procedure Performed Spirometry with Pre/Post Bronchodilator Plethysmography (Lung Vol) Diffusing Cap (DLCO) Flow Vol Loop PFT Interpretation Lung volumes were measured with the body plethysmography method. Lung volumes are unremarkable. Spirometry showed normal expiratory flow rates and a normal FEV1 to FVC ratio 77%. Following administration of a bronchodilator there was no significant increase in expiratory flow rates. Lung diffusion capacity is within the normal range at 99% predicted. The flow-volume loop is unremarkable. Impression: Spirometry, lung volumes, and lung diffusion capacity all within the normal range.
== END 2024-07-27 14:51 | disposition home or self-care (01) ==
PROVIDERS: PCP Internal Medicine; Visit Provider Clinical Nurse Specialist
DX: J44.9 Chronic obstructive pulmonary disease, unspecified (principal)
CPT/HCPCS: 94060; 94726; 94729

== ENCOUNTER 2024-08-29 09:59 | Outpatient (CLI) | payer OTHER, SELFPAY ==
--- OUTSIDE RECORDS SUMMARY | 2024-08-29 11:11 | XMS_ITS | Clinical Summary ---
Author Organization [facility] Address [facility]ly [facility] [place] [address] Care Team Providers Care Asphalt Patcher Name Role Phone Unavailable Primary Care Provider [...]
--- OUTSIDE RECORDS SUMMARY | 2024-08-29 11:11 | XMS_ITS | Clinical Summary ---
Author Organization [facility] Address [address] [address] Phone Care Team Providers Care Aircraft Parts Assembler Name Role Phone Carmella Singh JUNIOR Primary Care Provider +1- [phone] Allergies Active Allergy Reactions Criticality Noted Date [...] Relevant to Health Maintenance Insurance MEDICARE C [facility] on file Care Teams Aircraft Parts Assembler Relationship Specialty Start Date End Date Carmella Singh APRN PCP - General Advanced Practice Nurse 10/11/17
--- OUTSIDE RECORDS SUMMARY | 2024-08-29 11:11 | XMS_ITS | Referral Summary ---
Author Organization [address] Address [address] [place] [address] Care Team Providers Care Truck Body Builder Apprentice Name Role Phone Jevon Oconnor DO Primary Care Provider +1- [phone] Encounters Date Type Department Care Team Description 06/14/2024 3:15 PM DENTAL LABORATORY TECHNICIAN APPRENTICE Office Visit [address] [address] Shiloh Valdez MD Acquired hypothyroidism [...] NOS Assessment & Plan (06/14/2024 4:35 PM DENTAL LABORATORY TECHNICIAN APPRENTICE): Chronic, stable. Update TFTs Continue levothyroxine, with [...] on file Legal Sex Female 12:59 AM DENTAL LABORATORY TECHNICIAN APPRENTICE Gender Identity Not on file Sexual Orientation Straight 12/07/2023 1: 09 PM CDT Last Filed Vital Signs Vital Sign Reading Time Taken Comments Blood Pressure 124/70 06/14/2024 3:13 PM DENTAL LABORATORY TECHNICIAN APPRENTICE Pulse 68 06/14/2024 3:13 PM DENTAL LABORATORY TECHNICIAN APPRENTICE Temperature - - Respiratory Rate 16 06/14/2024 3:13 PM DENTAL LABORATORY TECHNICIAN APPRENTICE Oxygen Saturation - - Inhaled Oxygen Concentration - - Weight 72.1 kg (159 lb) 06/14/2024 3:13 PM DENTAL LABORATORY TECHNICIAN APPRENTICE Height 160 cm (5' 3 ) 06/14/2024 3:13 PM DENTAL LABORATORY TECHNICIAN APPRENTICE Body Mass Index 28.17 06/14/2024 3:13 PM DENTAL LABORATORY TECHNICIAN APPRENTICE Plan of Treatment Not on file Insurance [employer] PPO Care Teams Truck Body Builder Apprentice Relationship Specialty Start Date End Date Jevon Oconnor DO PCP - General Internal Medicine 08/22/23
--- OUTSIDE RECORDS SUMMARY | 2024-08-29 11:11 | XMS_ITS | Clinical Summary ---
Author Organization [id number] [facility] Address [address] [place] [address] Care Team Providers Care Parking Meter Attendant Name Role Phone Unavailable Primary Care Provider [...] 03/26/2021 INFLUENZA VACCINE (#1) 2023 PNEUMOCOCCAL VACCINE 50+ YEA RS (3 of 3 - PCV20 or PCV21) 04/02/2024 04/02/2019, 06/21/2016 [facility] [id number]
--- OUTSIDE RECORDS SUMMARY | 2024-08-29 11:11 | XMS_ITS | Clinical Summary ---
Author Organization [address] Address [address] [place] [address] Care Team Providers Care Client Care Specialist Name Role Phone Jevon Oconnor DO Primary Care Provider +1- [phone] Allergies Active Allergy Reactions Criticality Noted Date [...] NOS Assessment & Plan (06/14/2024 4:35 PM TAGMAN): Chronic, stable. Update TFTs Continue levothyroxine, with [...] Department Care Team Description 06/14/2024 3:15 PM TAGMAN Office Visit [facility] [address] [address] Shiloh Valdez MD Acquired hypothyroidism [...] on file Legal Sex Female 12:59 AM TAGMAN Gender Identity Not on file Sexual Orientation Straight 12/07/2023 1: 09 PM CDT Obstetrics History Last Filed Vital Signs Vital Sign Reading Time Taken Comments Blood Pressure 124/70 06/14/2024 3:13 PM TAGMAN Pulse 68 06/14/2024 3:13 PM TAGMAN Temperature - - Respiratory Rate 16 06/14/2024 3:13 PM TAGMAN Oxygen Saturation - - Inhaled Oxygen Concentration - - Weight 72.1 kg (159 lb) 06/14/2024 3:13 PM TAGMAN Height 160 cm (5' 3 ) 06/14/2024 3:13 PM TAGMAN Body Mass Index 28.17 06/14/2024 3:13 PM TAGMAN Plan of Treatment Health Maintenance Due Date [...] Insurance [employer] PPO Care Teams Client Care Specialist Relationship Specialty Start Date End Date Jevon Oconnor DO PCP - General Internal Medicine 08/22/23
--- OUTSIDE RECORDS SUMMARY | 2024-08-29 11:11 | XMS_ITS | Clinical Summary ---
Author Organization [facility] Address [address] [place] [address] Care Team Providers Care Middle School Professional Name Role Phone Martine Rowe MD Primary Care Provider [phone] Source Comments [facility],non-owned Affiliates and Associated Physician Practices is amultiple site organization consisting of ambulatory clinics and hospital sitesin [place], [place], [place] and [place]. This disclosure is being madepursuant to the Care Everywhere program and may not contain all information available regarding this patient. Last updated 18.[facility] [employer] Allergies Active Allergy Reactions Criticality Noted Date [...] PO Take by mouth every 7 days. 22995 units Active escitalopram (LEXAPRO) 20 MG tablet [...] to complete this topic MENINGOCOCCAL (Group B) VACC INE SHARED DECISION-MAKING Aged Out No longer eligibl e based on patient's age to complete this topic MENINGOCOCCAL GROUPS A/C/Y/W VACCINE Aged Out No longer eligible b ased on patient's age to complete this topic Advance Directives * Full Code (Latest Code Status on File) Date Activated Date Inactivated Comments 12/22/2009 9:56 AM 12/23/2009 10:48 PM Care Teams Middle School Professional Relationship Specialty Start Date End Date Martine Rowe MD [address] [place] [address] PCP - General 12/17/09
--- OUTSIDE RECORDS SUMMARY | 2024-08-29 11:11 | XMS_ITS | Patient Health Record ---
Author Organization [facility] Address [address] [facility] [address] [place], [place] [address] Care Team Providers Care Station Cashier Name Role Phone cheriMatthew Courtney Unavailable [phone] YONATHAN NICK, ROMINA Unavailable Unavailable REASON FOR REFERRAL No Information PLAN OF TREATMENT No Information Insurance Providers Payer Name Payer Address Payer Phone Subscriber Number Group Number Insured Name Patient Relationship to Insured Coverage Start Date Coverage End Date BLUE ACCESS CHOICE [address] [place] [phone] [id number] Yaakov Amaya Spouse - patient is the spouse of the insured 8 MEDICARE ASSIGNMENT [address] [place] [address] [id number] Yaakov Amaya Spouse - patient is the spouse of the insured 1
[2024-09-25 10:58] VITALS: BMI 26.6
--- NOTE | 2024-09-25 10:58 | WPDSLEEPSTUD ---
Sleep Study Date of Study: 08/29/24 Ordering Provider: Funmi France DO Interpreting Physician: Funmi France DO Sleep Study Type: Polysomnogram Height: 1.63 m Weight: 70.307 kg Body Mass Index: 26.6 Neck Circumference (inches): 14 Hartley: 10 Reason for Sleep Study Daytime hypersomnia Sleep History The patient is a 68-year-old female that had a sleep study her sleep physician for evaluation sleep apnea. The patient denies awakening from sleep short of breath. She denies awakening at night with heartburn, belching or cough. She frequently snores and is frequently loud enough that others complain. She constantly has trouble sleeping when she has a cold. She denies waking up gasping for air throughout the night. She denies having breathing problems at night observed by herself or others. She denies sweating excessively at night. She denies having heart palpitations or irregular heartbeats during the night. She occasionally falls asleep during the day but never while driving. She denies sleep paralysis. She frequently experiences loss of muscle tone when extremely emotional. She constantly experiences vivid dreamlike scenes upon awakening or falling asleep. She denies feeling afraid of going to sleep. She frequently has nightmares. She rarely remembers her dreams. She constantly has thoughts racing through her mind. She occasionally feels sad, depressed and anxious. She rarely has muscular tension. She occasionally notices parts of her body jerk. She rarely kicks during the night. She rarely has crawling and aching feelings in her legs but occasionally has leg pain during the night. She occasionally grinds her teeth during sleep but never awakens with morning jaw pain. She is frequently bothered by pain during the day but never awakened by pain during the night. She occasionally wakes up feeling stiff in the morning. He rarely wakes up with sore or achy muscles. She rarely wakes up with pain in the neck, spine and other joints. She goes to bed at 10:00 p.m. on both weekdays and weekends. It takes her 1-3 hours to fall asleep. She wakes up 1-2 times throughout the night to urinate and is able to fall back asleep immediately. She wakes up at 10:00 a.m. on both weekdays and weekends. She typically gets 10 hours of sleep per night. She currently lives with her . She denies consuming any caffeinated beverages within 2 hours of bedtime. She denies engaging in physical exercise before bedtime. She denies reading before falling asleep. She will watch television before falling asleep. She will occasionally take a nap in the afternoon or the evening but it is not refreshing. She does consume caffeinated beverages throughout the day. She denies tobacco and alcohol use. She does use CBD gummies to help her fall asleep. [facility] Past Medical History Medical History Closed avulsion fracture of left ankle Arthritis of subtalar joint Depression Anxiety and depression Hypothyroid GERD (gastroesophageal reflux disease) Chronic idiopathic constipation Therapeutic opioid-induced constipation (OIC) Fibromyalgia DEBBIE (obstructive sleep apnea) Hypertension COPD (chronic obstructive pulmonary disease) Surgical History Surgical History Hx of cholecystectomy H/O colonoscopy H/O repair of rotator cuff H/O section Family History Family History Mother Asthma Cancer Father Hypertension Heart disease Sibling Anxiety and depression Social History Social History Social History: caffeine use Smoking status: Never smoker Second hand tobacco smoke exposure: Yes Alcohol intake: never Substance use: never Substance use type: does not use Lack of Transportation: No Lack of Food: Never True Current Housing: I Have Housing Concerned About Future Housing: No Difficulty Paying Gas/Electric Bills: No Difficulty Paying for Meds: No Currently Unemployed: No Education: High School Diploma/GED Difficulty w/ Childcare or Family Care: No Occupation/Education: retired Gender identity (if verbalized by the patient): Female Medications Home Medications ?Medication ?Instructions ?Recorded ?Confirmed ?Type vitamin B complex-folic acid 0.4 1 tablet PO DAILY 08/08/19 07/25/24 History mg tablet (B Complex 100) ergocalciferol (vitamin D2) 1,250 50,000 unit PO 09/24/22 07/25/24 History mcg (50,000 unit) capsule bupropion HCl 150 mg 24 hr tablet, 150 mg PO QAM #90 tabs 10/25/23 07/25/24 Rx extended release (Wellbutrin XL) triamcinolone acetonide 0.1 % 1 applic topical TID PRN rash #30 11/17/23 07/25/24 Rx topical cream grams chlorthalidone 25 mg tablet 25 mg PO DAILY #90 tabs 11/29/23 07/25/24 Rx levothyroxine 75 mcg tablet 37.5 mcg (1/2 x 75 mcg) PO DAILY 11/29/23 07/25/24 Rx #45 tabs amlodipine 5 mg tablet 5 mg PO DAILY #90 tabs 03/05/24 07/25/24 Rx omeprazole 40 mg capsule,delayed 40 mg PO DAILY #90 caps 03/16/24 07/25/24 Rx release duloxetine 60 mg capsule,delayed 60 mg PO BID #180 caps 05/28/24 07/25/24 Rx release levalbuterol tartrate 45 1 puff inhalation Q6H PRN 07/05/24 07/25/24 Rx mcg/actuation aerosol inhaler shortness of breath or wheezing (Xopenex HFA) #15 grams coenzyme Q10 100 mg-vitamin E 201 tablet PO 07/25/24 07/25/24 History mg chewable tablet eszopiclone 3 mg tablet (Lunesta) 3 mg PO QHS #1 tablet 07/25/24 07/25/24 Rx gabapentin 300 mg capsule 300 mg PO .4 times daily 3 months 07/25/24 07/25/24 Rx #30 caps celecoxib 400 mg capsule See Rx Instructions .Route 08/28/24 Rx .COMPLEX #90 caps spironolactone 25 mg tablet 50 mg (2 x 25 mg) PO DAILY #180 08/30/24 Rx tabs Sleep Procedure A full night polysomnogram using the [employer] multi-channel system recorded the standard physiologic parameters including EEG, EOG, submentalis EMG, anterior tibialis EMG, EKG, body position, nasal and oral airflow using nasal pressure sensor and thermistor.? Respiratory parameters of chest and abdominal movements were recorded with Respiratory Inductance Plethysmography belts. Oxygen saturation was recorded by pulse oximetry. Video monitoring was also performed. Sleep stages, periodic limb movements, and EEG arousals were scored in 30 second epochs according to the criteria of the AASM Scoring Manual. The Apnea-Hypopnea Index was calculated using CMS guidelines for definition of hypopnea with 4% O2 desaturations while scoring respiratory events. Sleep Architecture The total recording time was 515.3 minutes.? The total sleep time was 287.5 minutes. Sleep latency was 202.6 minutes. REM sleep was not achieved during this study. Sleep efficiency was 55.8%. The patient had 25 awakenings for an awakening index of 5.2. Wake after sleep onset time was 25.5 minutes. The patient spent 13.5 minutes, 4.7% of total sleep time in Stage N1. The patient spent 218.0 minutes, 75.8% in Stage N2. The patient spent 56.0 minutes, 19.5% in Stage N3. The patient spent 0.0 minutes, 0.0% in Stage REM sleep. Respiratory Analysis The patient had 28 hypopneas for an overall Apnea Hypopnea Index of 5.8. The REM Apnea Hypopnea Index was 0. The NREM Apnea Hypopnea Index was 5.8. The patient had a Central Apnea Hypopnea Index of 0. There was no evidence of Erickson-Chaidez Respirations. Arousals There were 167 total arousals for an arousal index of 34.9. There were 90 spontaneous arousals for an index of 18.8. There were 15 arousals due to respiratory events for an index of 3.1. There were 31 arousals due to periodic limb movements for an index of 6.5.? There were 31 arousals due to isolated limb movements for an index of 6.5. Periodic Limb Movements The patient had 66 isolated limb movements with an index of 13.8. The patient had 63 periodic limb movements with an index of 13.1. Patient had a total of 129 limb movements with a total limb movement index of 26.9. Oximetry Data The patient had an average oxygen saturation of 92.9% in sleep with a minimum oxygen saturation of 83.0% and a maximum oxygen saturation of 98.0%. The patient had 31 oxygen desaturations that were 4% or greater resulting in an Oxygen Desaturation Index of 6.5.? The patient spent 4.1 minutes, 0.9% of total sleep time with an oxygen saturation below 88%. Snoring Profile Mild to moderate snoring was present throughout the study. Cardiac Profile The EKG showed normal sinus rhythm.?No arrhythmias or premature beats were seen. The patient had an average pulse rate of 79.0 bpm with a minimum pulse of rate of 67.0 bpm and a maximum pulse rate of 92.0 bpm.? EEG Profile No signs of seizure activity seen. Assessment and Plan Assessment and Plan (1) DEBBIE (obstructive sleep apnea): Code(s): G47.33 - Obstructive sleep apnea (adult) (pediatric) Status: Acute Assessment and Plan: The patient had an overall AHI of 5.8 with desaturation down to 83%. This is consistent with mild sleep apnea. I recommend that the patient have a CPAP titration study with the use of a hypnotic to ensure we obtain enough sleep data and find an optimal pressure setting. A mandibular advancement device is also an acceptable treatment option. Data The data obtained during this sleep study is adequate for interpretation. Certification This sleep study has been reviewed by a board certified sleep medicine physician.
== END 2024-08-30 07:08 | disposition home or self-care (01) ==
LOC: ANHCSM 10:01
PROVIDERS: PCP Internal Medicine; Visit Provider Family Medicine
DX: G47.33 Obstructive sleep apnea (adult) (pediatric) (principal); G47.00 Insomnia, unspecified; E03.9 Hypothyroidism, unspecified; F41.8 Other specified anxiety disorders; K21.9 Gastro-esophageal reflux disease without esophagitis; I10 Essential (primary) hypertension; J44.9 Chronic obstructive pulmonary disease, unspecified
CPT/HCPCS: 95810

== ENCOUNTER 2025-02-04 14:54 | Outpatient (CLI) | payer OTHER, SELFPAY ==
--- NOTE | ~2025-02-04 | XR_ITS ---
EXAMINATION: XR foot LT 2V, 02/04/2025 15:03 CDT HISTORY: Multiple joint pain COMPARISON: No comparisons available. Findings: No acute fracture or malalignment. Moderate degenerative changes first metatarsophalangeal joint. Small calcaneal spur. Soft tissues unremarkable. Impression: No acute fracture or malalignment. Reviewed, dictated and finalized at location A. Impression: No acute fracture or malalignment.
--- NOTE | ~2025-02-04 | XR_ITS ---
EXAMINATION: XR hand LT 2V, 02/04/2025 15:03 CDT HISTORY: Multiple joint pain COMPARISON: No comparisons available. Findings: No acute fracture or malalignment. No significant degenerative changes. Soft tissues unremarkable. Impression: No acute fracture or malalignment. Reviewed, dictated and finalized at location A. Impression: No acute fracture or malalignment.
--- NOTE | ~2025-02-04 | XR_ITS ---
EXAMINATION: XR hand RT 2V, 02/04/2025 15:03 CDT HISTORY: Multiple joint pain COMPARISON: No comparisons available. Findings: No acute fracture or malalignment. No significant degenerative changes. Soft tissues unremarkable. Impression: No acute fracture or malalignment. Reviewed, dictated and finalized at location A. Impression: No acute fracture or malalignment.
--- NOTE | ~2025-02-04 | XR_ITS ---
EXAMINATION: XR foot RT 2V, 02/04/2025 15:03 CDT HISTORY: Multiple joint pain COMPARISON: No comparisons available. Findings: No acute fracture or malalignment. Moderate degenerative changes first metatarsophalangeal joint. Large calcaneal spur. Soft tissues unremarkable. Impression: No acute fracture or malalignment. Reviewed, dictated and finalized at location A. Impression: No acute fracture or malalignment.
--- NOTE | ~2025-02-04 | XR_ITS ---
XR sacroiliac joints min 3V Indication: Multiple joint pain Comparison: None Findings: The vertebral heights are intact. No fracture or subluxation. There is significant sclerosis of the sacroiliac joints with bridging osteophyte formation or erosions identified Soft tissues unremarkable Impression: No acute abnormality. Reviewed, dictated and finalized at location A. Impression: No acute abnormality.
== END 2025-02-04 14:55 | disposition home or self-care (01) ==
LOC: MICIMG 14:56
PROVIDERS: PCP Clinical Nurse Specialist; Visit Provider Internal Medicine Rheumatology
DX: M25.50 Pain in unspecified joint (principal)
CPT/HCPCS: 72202; 73120; 73620